=== PATIENT | female | born 1990 | race Caucasian/White ===

== ENCOUNTER 2016-03-29 16:16 | Emergency (ER) | payer MEDICAID, SELFPAY ==
[2016-03-29] MEDS ORDERED: Lidocaine Viscous Sol 2% 15 ml UD Cup ONE (16:34)
[2016-03-29] MEDS ORDERED: traMADol HCl 50 MG TAB ONE (16:50)
[2016-03-29] MEDS ORDERED: diphenhydrAMINE HCl 25 MG CAP ONE (16:50)
[2016-03-29] MEDS ORDERED: Metoclopramide HCl 10 MG TAB ONE (16:50)
[2016-03-29] MEDS ORDERED: Dexamethasone 4 MG TAB ONE (16:50)
[2016-03-29] MEDS ORDERED: Lidocaine 1% 20 ML MDV ONE (16:51)
[2016-03-29] MEDS ORDERED: cefTRIAXone\\ROCEPHIN 1 GM VIAL ONE (16:51)
== END 2016-03-29 17:33 | disposition home or self-care (01) ==
LOC: MADERS 16:16
DX: K02.9 Dental caries, unspecified (principal); F17.210 Nicotine dependence, cigarettes, uncomplicated
CPT/HCPCS: 96372; J0696; J2001; J8540

== ENCOUNTER 2016-10-01 23:19 | Emergency (ER) | payer OTHER ==
[~2016-10-01 23:19] MED LIST: Lidocaine 1% 20 ML MDV ONE
[2016-10-01] MEDS ORDERED: Ibuprofen 600 MG TAB ONE (23:40)
[2016-10-02 00:01] LABS: Bilirubin Negative (Negative); Clarity Slightly Cloudy (Clear); Glucose, Urine (Dipstick) Negative (Negative); Leukocyte Small (Negative); Nitrite Negative (Negative); Protein, Urine (Dipstick) Negative (Neg-Trace); Specific Gravity, Urine 1.025 (1.005-1.030); Urobilinogen 0.2 mg/dL (0.2-1.0)
[2016-10-02 00:02] LABS: Blood, Urine Small (Negative)
[2016-10-02 00:03] LABS: Bacteria/HPF 3+ HPF (None Seen); Renal Epithelial 0-3 HPF (0-3); Transitional Epithelial 0-3 HPF (0-3); WBC/HPF 21-50 HPF (0-3); Yeast-All Forms Rare HPF (None Seen)
[2016-10-02] MEDS ORDERED: cefTRIAXone\\ROCEPHIN 1 GM VIAL ONE (00:16)
[2016-10-02] MEDS ORDERED: Phenazopyridine HCl 97.5 MG TABLET ONE (00:18)
== END 2016-10-02 00:38 | disposition home or self-care (01) ==
LOC: MADERS 23:19
DX: N39.0 Urinary tract infection, site not specified (principal); F17.210 Nicotine dependence, cigarettes, uncomplicated
CPT/HCPCS: 81003; 81015; 87086; 96372; J0696; J2001

== ENCOUNTER 2016-10-29 19:17 | Emergency (ER) | payer OTHER ==
[2016-10-29 19:59] LABS: Pregnancy Test - Urine (BHCG) Negative (Negative); Pregu Control Background? CLEAR/WHITE (CLR/WHITE); Pregu Control Bar Appear? YES (CONTROL BAR); Specific Gravity 1.026 (1.002-1.036)
[2016-10-29] MEDS ORDERED: HYDROcodone/Acetaminophen 10/325 mg Tablet ONE (20:03)
[2016-10-29] MEDS ORDERED: Naproxen 500 MG TAB ONE (20:03)
[2016-10-29 20:07] LABS: Bilirubin Negative (Negative); Blood, Urine Large (Negative); Clarity Slightly Cloudy (Clear); Glucose, Urine (Dipstick) Negative (Negative); Leukocyte Trace (Negative); Nitrite Negative (Negative); Protein, Urine (Dipstick) Trace mg/dL (Neg-Trace); Specific Gravity, Urine 1.025 (1.005-1.030); Urobilinogen 0.2 mg/dL (0.2-1.0); pH, Urine 5.5 (5.0-9.0)
[2016-10-29 20:09] LABS: Bacteria/HPF 3+ HPF (None Seen)
[2016-10-29] MEDS ORDERED: Sulfameth/Trimethoprim DS 800-160mg TAB ONE (20:22)
== END 2016-10-29 20:30 | disposition home or self-care (01) ==
LOC: MADERS 19:17
DX: N39.0 Urinary tract infection, site not specified (principal); F17.210 Nicotine dependence, cigarettes, uncomplicated
CPT/HCPCS: 81001; 81025; 87086; 99284

== ENCOUNTER 2016-11-09 23:37 | Emergency (ER) | payer OTHER ==
[2016-11-10] MEDS ORDERED: HYDROcodone/Acetaminophen 10/325 mg Tablet ONE (00:04)
[2016-11-10] MEDS ORDERED: Naproxen 500 MG TAB ONE (00:04)
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
== END 2016-11-10 00:45 | disposition home or self-care (01) ==
LOC: MADERS 23:37
DX: S60.222A Contusion of left hand, initial encounter (principal); F17.210 Nicotine dependence, cigarettes, uncomplicated; Z79.891 Long term (current) use of opiate analgesic; Z79.899 Other long term (current) drug therapy; W23.0XXA Caught, crushed, jammed, or pinched between moving objects, initial encounter

== ENCOUNTER 2017-03-30 03:38 | Emergency (ER) | payer OTHER, SELFPAY ==
[2017-03-30] MEDS ORDERED: AMOXicillin 250 MG CAP ONE (04:00)
[2017-03-30] MEDS ORDERED: Diazepam 5 MG TAB ONE (04:00)
[2017-03-30] MEDS ORDERED: HYDROcodone/Acetaminophen 10/325 mg Tablet ONE (04:01)
[2017-03-30] MEDS ORDERED: Naproxen 500 MG TAB ONE (04:01)
== END 2017-03-30 04:20 | disposition home or self-care (01) ==
LOC: MADERS 03:38
DX: K03.81 Cracked tooth (principal); K02.9 Dental caries, unspecified; K04.7 Periapical abscess without sinus; F17.210 Nicotine dependence, cigarettes, uncomplicated
CPT/HCPCS: 99282

== ENCOUNTER 2017-06-23 16:52 | Emergency (ER) | payer SELFPAY | END 2017-06-23 18:36 | disposition left against medical advice (07) | LOC: MADERS 16:52 | DX: J02.9 Acute pharyngitis, unspecified (principal); K08.89 Other specified disorders of teeth and supporting structures; F17.210 Nicotine dependence, cigarettes, uncomplicated | CPT/HCPCS: 99283 ==

== ENCOUNTER 2017-08-05 23:08 | Emergency (ER) | payer MEDICAID, SELFPAY ==
[2017-08-05] MEDS ORDERED: Mag-Al Plus 1200 MG/1200 MG/120 MG/30 ML UDCUP ONE (23:26)
[2017-08-05] MEDS ORDERED: Lidocaine Viscous Sol 2% 15 ml UD Cup ONE (23:26)
== END 2017-08-05 23:58 | disposition home or self-care (01) ==
LOC: MADERS 23:08
DX: B00.1 Herpesviral vesicular dermatitis (principal); F17.210 Nicotine dependence, cigarettes, uncomplicated
CPT/HCPCS: 99283

== ENCOUNTER 2018-08-09 02:39 | Emergency (ER) | payer MEDICAID, SELFPAY ==
[2018-08-09] MEDS ORDERED: Triple Antibiotic Oint 1 GM Packet ONE (03:08)
== END 2018-08-09 03:35 | disposition home or self-care (01) ==
LOC: MADERS 02:39
DX: S91.332A Puncture wound without foreign body, left foot, initial encounter (principal); F17.200 Nicotine dependence, unspecified, uncomplicated; W22.8XXA Striking against or struck by other objects, initial encounter
CPT/HCPCS: 99283

== ENCOUNTER 2021-06-14 13:48 | Emergency (ER) | payer OTHER, SELFPAY ==
[2021-06-14 15:33] LABS: BHCG - Serum Negative (NEGATIVE); Pregs Control Background? CLEAR/WHITE (CLR/WHITE); Pregs Control Bar Appear? YES (CONTROL BAR)
[2021-06-14 15:42] LABS: ALT (SGPT) 10 U/L (8-55); AST (SGOT) 26 U/L (5-34); Albumin 4.3 g/dL (3.5-5.0); Alkaline Phosphatase 66 U/L (40-110); Anion Gap 20 mmol/L (10-20); BUN (Urea Nitrogen) 13 mg/dL (7.0-18.7); Bilirubin, Total 0.2 mg/dL (0.2-1.2); Calc. Creatinine Clearance 0 mL/min (70-130); Calcium 8.5 mg/dL (7.8-10.44); Carbon Dioxide 19 mmol/L (22-29); Chloride 108 mmol/L (98-107); Globulin 3.1 g/dL (2.4-3.5); Glucose 86 mg/dL (70-105); Potassium 4.5 mmol/L (3.5-5.1); Protein, Total 7.4 g/dL (6.0-8.3); Sodium 142 mmol/L (136-145)
[2021-06-14 15:53] LABS: Anisocytosis SLIGHT = 6-15 cells (100X) (0-5/hpf); Hypochromia MODERATE=16-30 cells (100X) (0-5/hpf); Lymphocytes 15 % (21-51); MDiff Complete? YES; Mean Corpuscular HGB CONC 27.6 g/dL (32.0-36.0); Mean Corpuscular Hemoglobin 16.5 pg (27.0-31.0); Mean Corpuscular Volume 59.8 fL (78.0-98.0); Mean Platelet Volume 8.6 fL (7.4-10.4); Microcytosis MODERATE=15-30 cells (100X) (0-5/hpf); Monocytes 6 % (0-10); Neutrophil 79 % (42-75); Platelet Count 407 thou/uL (130-400); Platelet Morphology Comment Appears Increased; Polychromasia SLIGHT = 2-3 cells (100X) (0-2/hpf); RBC Distribution Width 18.5 % (11.5-14.5); Red Blood Cell (RBC) Count 4.21 mill/uL (4.20-5.40); Reflex for Review?? YES; White Blood Cell (WBC) Count 10.5 thou/uL (4.8-10.8)
[2021-06-14] MEDS ORDERED: Ketorolac Tromethamine 30 MG/ML VIAL ONE (16:11)
[2021-06-14] MEDS ORDERED: Amoxicillin/Potassium Clav 875 MG TAB ONE (16:33)
== END 2021-06-14 16:37 | disposition home or self-care (01) ==
LOC: MADERS 13:48
DX: K02.9 Dental caries, unspecified (principal); K05.10 Chronic gingivitis, plaque induced
CPT/HCPCS: 80053; 84703; 85025; 85060; 96374; J1885

== ENCOUNTER 2022-05-24 06:41 | Emergency (ER) | payer OTHER ==
[2022-05-24 07:10] LABS: Bilirubin Negative (Negative); Blood, Urine Negative (Negative); Clarity Clear (Clear); Glucose, Urine (Dipstick) Negative (Negative); Ketone, Urine Trace mg/dL (Negative); Leukocyte Negative (Negative); Nitrite Negative (Negative); Protein, Urine (Dipstick) Negative (Neg-Trace); Urobilinogen 0.2 mg/dL (Less than 2)
[2022-05-24 07:13] LABS: Specific Gravity, Urine 1.028 (1.002-1.036)
[2022-05-24 07:14] LABS: Pregnancy Test - Urine (BHCG) Negative (Negative); Pregu Control Background? CLEAR/WHITE (CLR/WHITE); Pregu Control Bar Appear? YES (CONTROL BAR); Specific Gravity 1.028 (1.002-1.036)
[2022-05-24] MEDS ORDERED: cefTRIAXone (ROCEPHIN) 500 MG VIAL ONE (07:46)
[2022-05-24] MEDS ORDERED: Sterile Water 10 ML ONE (07:46)
[2022-05-24] MEDS ORDERED: Doxycycline 100 MG CAP ONE (07:46)
[2022-05-24] MEDS ORDERED: metroNIDAZOLE 250 MG TAB ONE (07:46)
[2022-05-25 15:45] LABS: Chlam.trachomatis by PCR,Urine Not Detected (NotDetected); GC N.gonorrhoeae PCR,UrineVOID Not Detected (NotDetected)
== END 2022-05-24 08:03 | disposition home or self-care (01) ==
LOC: MADERS 06:41
DX: N89.8 Other specified noninflammatory disorders of vagina (principal); R50.9 Fever, unspecified
CPT/HCPCS: 81003; 81025; 87491; 87591; 96372; 99284; J0696